=== PATIENT | female | born 1985 | race Caucasian/White ===

== ENCOUNTER → 2023-09-30 15:12 | Outpatient (CLI) | payer OTHER, SELFPAY ==
--- NOTE | 2023-09-30 15:13 | DI.US.S_ITS ---
PROCEDURE: US THYROID INDICATIONS: out of range thyroid TECHNIQUE: Real-time scanning was performed of the thyroid gland, with image documentation. COMPARISON: None. FINDINGS: Right: Thyroid lobe measures 4.1 X 1.9 X 2.3 cm, and is homogeneous in echotexture. Left: Thyroid lobe measures 3.4 X 1.5 X 2.2 cm, and is homogenous in echotexture. Isthmus: 0.7 cm thick. Nodule number: 1 Location: Right UPPER THYROID Size: 8 x 5 x 4 mm Composition: Solid Echogenicity: Hypoechoic Shape: wider than tall. Margins: CLEAR Echogenic foci: NONE Total points: 3 ACR TI-RADS category: 2 Nodule number: 2 Location: Right LOWER THYROID Size: 18 x 15 x 13 mm. Composition: Solid and cystic Echogenicity: Isoechoic Shape: wider than tall. Margins: Clear Echogenic foci: None Total points: 2 ACR TI-RADS category: 2 Nodule number: 3 Location: Left lower thyroid Size: 9 x 8 x 8 mm. Composition: Cystic Echogenicity: Anechoic Shape: wider than tall. Margins: Smooth, well-defined Echogenic foci: None Total points: 1 ACR TI-RADS category: 2 IMPRESSION: Several cystic lesions of the thyroid ; TI-RADS 2 (not suspicious) Follow-up of these benign appearing cystic lesions is not required ACR TI-RADS definitions and recommendations: TI-RADS 1 (benign): 0 points. FNA not needed. TI-RADS 2 (not suspicious): 2 points. FNA not needed. TI-RADS 3 (mildly suspicious): 3 points. * FNA if 2.5 cm or larger, follow up if 1.5 cm or larger (at 1, 3, and 5 years). TI-RADS 4 (moderately suspicious): 4-6 points. * FNA if 1.5 cm or larger, follow up if 1 cm or larger (at 1, 2, 3, and 5 years). TI-RADS 5 (highly suspicious): 7 points or more. * FNA if 1 cm or larger, follow up if 0.5 cm or larger (every year for 5 years). Dictated by: Kevin Escoto M.D. on 09/30/2023 at 17:11 Approved by: Kevin Escoto M.D. on 10/03/2023 at 10:50
== END ==
PROVIDERS: PCP Family Medicine; Referring Provider Family Medicine; Visit Provider Family Medicine
DX: T56.891A Toxic effect of other metals, accidental (unintentional), initial encounter (principal); E03.2 Hypothyroidism due to medicaments and other exogenous substances; E04.2 Nontoxic multinodular goiter
CPT/HCPCS: 76536